=== PATIENT | male | born 1985 | race Caucasian/White ===

== ENCOUNTER 2017-12-18 13:16 | Emergency (ER) | payer MEDICAID, OTHER ==
[~2017-12-18] VITALS: Ht 167.6 cm; Wt 57.0 kg
[~2017-12-18 13:16] MED LIST: CYCL-36 PO; DICL50 PO
[2017-12-18 13:32] VITALS: BP 139/80; PULSE 106; RESP 20; TEMP 98; O2SAT 100
[2017-12-18 14:13] LABS: BILIRUBIN, URINE NEG (NEG); BLOOD, URINE NEG (NEG); GLUCOSE,URINE NEG (NEG); KETONE, URINE NEG (NEG); NITRITE,URINE NEG (NEG); URINE LEUKOCYTE ESTERASE NEG (NEG)
[2017-12-18] MEDS ORDERED: IBUPROFEN 600 MG TAB PO ONE (14:30)
[2017-12-18] MEDS ORDERED: CIPROFLOXACIN 500 MG TAB PO ONE (14:30)
[2017-12-18 14:52] LABS: URINE COLOR AT (YELLW/STRAW)
[2017-12-18 14:53] LABS: SQUAMOUS EPITHELIAL CELL URINE 0-5 /hpf (0-5)
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
[2017-12-18 16:07] VITALS: BP 127/75; PULSE 69; RESP 18; O2SAT 99
[2017-12-18] MEDS ORDERED: IBUP1TAB5 PO ×2 (16:21→16:26)
[2017-12-18] MEDS ORDERED: DOXY1TAB6 PO ×2 (16:21→16:26)
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
== END 2017-12-18 16:37 | disposition home or self-care (01) ==
LOC: PHED 13:16
DX: N43.40 Spermatocele of epididymis, unspecified (principal); N50.811 Right testicular pain
CPT/HCPCS: 76870; 81001; 93975; 99284